=== PATIENT | male | born 1955 | race Caucasian/White ===

== ENCOUNTER 2023-09-09 08:37 | Outpatient (RCR) | payer OTHER, SELFPAY | END 2023-10-18 14:58 | disposition home or self-care (01) | LOC: PT 08:37 | PROVIDERS: PCP Family Medicine | DX: G44.86 Cervicogenic headache (principal) | CPT/HCPCS: 20560; 97110; 97140; 97161 ==

== ENCOUNTER 2023-10-25 09:51 | Outpatient (RCR) | payer OTHER, SELFPAY | END 2023-10-26 16:00 | disposition home or self-care (01) | LOC: OT 09:51 | PROVIDERS: PCP Family Medicine; Visit Provider Family Medicine | DX: G44.86 Cervicogenic headache (principal) | CPT/HCPCS: 97140; 97166; 97530 ==